=== PATIENT | male | born 1935 | race Caucasian/White ===

== ENCOUNTER 2017-10-18 16:46 | Inpatient (IN) | payer MEDICARE, MEDICAID ==
[~2017-10-18] VITALS: Ht 170.2 cm; Wt 63.5 kg
[2017-10-18] MEDS ORDERED: PANT40TA2 PO (17:27)
[2017-10-18] MEDS ORDERED: MEMA10TA PO (17:27)
[2017-10-18] MEDS ORDERED: BUPR-96 PO (17:27)
[2017-10-18] MEDS ORDERED: ENOX40DI SQ (17:27)
[2017-10-18] MEDS ORDERED: RIVA1PAT3 TD (17:27)
[2017-10-18] MEDS ORDERED: MIRT45TA PO (17:27)
[2017-10-18] MEDS ORDERED: ACET-2154 PO (17:27)
[2017-10-18] MEDS ORDERED: AMLO5TAB4 PO (17:27)
--- NOTE | 2017-10-18 17:30 | NUR ---
pt received from sakshi collins. report received from nurse. pt vitals assessed. bp elevated . other vitals stable. assessed pt on arrival. pt has severe left leg weakness.pt is also blind on left eye. other assessments within normal limits. no assessments on back pictures taken and placed in chart. pt has a blister above the incision. med recon done. md made aware. family provided information about the patient. family brought four days worth of meds such as namenda welbutrin exelon and mirtazepam. family refused to have norvasc because pt had orthostatic hypotension. family only wants meds from home. will inform md.
[2017-10-18 18:58] VITALS: BP 138/62
[2017-10-18 19:30] VITALS: BP 143/70
--- NOTE | 2017-10-18 19:30 | NUR ---
Received patient from day shift nurse. Patient currently lying in bed comfortably with no signs of pain, sob, or acute distress. patient is A/O x4 & Cuban/Serbian speaking only. BP elevated at start of shift at 143/70. Will continue to monitor BP. Per day shift RN, patient to only take meds from home brought by family. MD aware, pharmacy aware. Mena cath bag hanging low below level of bladder & off the floor. Yellow urine flowing through mena. Room checked for safety at start of shift. Bed placed in low position, locked, x2 side rails up. Call light within reach. Will continue to monitor through shift.
--- NOTE | 2017-10-18 20:50 | NUR ---
Mirtazapine 22.5mg & Namenda 10mg was given at 2034 as per order on eMAR. Family approached me stating that the son of the pt, Prashanth, had given evening meds prior to patient's admission to the hospital. I was not endorsed by family or day shift nurse that evening meds had been given. Family is stating that we gave a double dose of the Mirtazapine & Namenda. I immediately assessed the patient. patient alert, awake, no acute distress, sob, or pain noted. Vital signs were taken. BP at 128/70, HR of 88, o2 sat of 96% room air, temp of 98.0, and resp of 20. MD Dr. Pettit immediately notified of the situation. stated the patient should be fine since he did not go over FDA approved limit for both drugs. MD ordered to continue to monitor & that pt might appear sleepy/sluggish in the AM. Family aware of MD notification & order. Nursing shed workers supervisor aware. Will continue to monitor pt through shift.
[2017-10-18] MEDS ORDERED: MIRTAZAPINE 15 MG TABLET PO ONE (21:00)
[2017-10-18] MEDS ORDERED: MEMANTINE HCL 10 MG TABLET PO SCH (21:00)
[2017-10-18] MEDS ORDERED: MIRALAX 17 GM POWD.PACK PO PRN (23:00)
[2017-10-18] MEDS ORDERED: HYDROCODONE/APAP 5-325MG TABLET PO PRN (23:00)
--- NOTE | 2017-10-19 01:30 | NUR ---
Patient re assessed. vital signs WNL. BP at 124/72, o2 sat at 97%, HR at 80. No current signs of acute distress or sob. patient is alert & awake. Will continue to monitor through shift.
--- NOTE | 2017-10-19 05:50 | NUR ---
Patient remained stable through shift. No acute distress noted. Vital signs remained WNL. patient was awake for most of the night. All needs attended to. Kept clean, dry, diaper changed per soiling. Left hip incision intact, clean, dry. No s/s of infection, redness, or swelling at surgical site. Safety measures implemented. Call light within reach. Will endorse to day shift nurse.
[2017-10-19] MEDS: PANTOPRAZOLE SODIUM 40 MG TABLET.DR PO SCH (06:46)
[2017-10-19 07:11] LABS: BASOPHILS % (AUTO) 0.3 % (0.0-2.0); EOSINOPHILS # (AUTO) 0.2 K/uL (0.0-0.7); EOSINOPHILS % (AUTO) 2.6 % (0.0-7.0); HEMATOCRIT 26.7 % (36.7-47.1); LYMPHOCYTES # (AUTO) 1.6 K/uL (20.0-40.0); LYMPHOCYTES % (AUTO) 23.2 % (20.5-51.5); MEAN CORPUSCULAR HEMOGLOBIN 30.2 uug (23.8-33.4); MEAN CORPUSCULAR HGB CONC 34 g/dL (32.5-36.3); MEAN CORPUSCULAR VOLUME 89.3 fL (73.0-96.2); MONOCYTES # (AUTO) 0.5 K/uL (2.0-10.0); MONOCYTES % (AUTO) 7.7 % (0.0-11.0); NEUTROPHILS # (AUTO) 4.6 K/uL (1.8-8.9); NEUTROPHILS % (AUTO) 66.2 % (38.5-71.5); PLATELET COUNT (AUTO) 254 K/uL (152-348); RED BLOOD CELL COUNT(AUTO) 2.99 MIL/uL (4.06-5.63); WHITE BLOOD COUNT (AUTO) 6.9 K/uL (3.6-10.2)
[2017-10-19 07:56] LABS: ALANINE AMINOTRANSFERASE 84 U/L (16-63); ALKALINE PHOSPHATASE 110 U/L (50-136); ASPARTATE AMINOTRANSFERASE 97 U/L (15-37); BILIRUBIN,TOTAL 0.6 mg/dL (0.2-1.0); CARBON DIOXIDE 26 mmol/L (21-32); CHLORIDE 107 mmol/L (98-107); CREATININE 1.3 mg/dL (0.6-1.3); GLUCOSE 99 mg/dL (74-106); MAGNESIUM 2.1 mg/dL (1.8-2.4); PHOSPHOROUS 3.6 mg/dL (2.5-4.9); POTASSIUM 4.2 mmol/L (3.5-5.1); TOTAL PROTEIN, SERUM 6.2 g/dL (6.4-8.2); UREA NITROGEN, BLOOD 23 mg/dL (7-18)
[2017-10-19 08:00] VITALS: BP 136/65
[2017-10-19 08:00] LABS: IRON, SERUM 44 ug/dL (50-175)
[2017-10-19 08:23] LABS: CHOLESTEROL 151 mg/dL (<200); HDL CHOLESTEROL 29 mg/dL (40-60); TRIGLYCERIDES 126 MG/DL (30-150)
--- NOTE | 2017-10-19 08:27 | NUR ---
patient noted resting in bed, no complaints of pain, no signs of distress noted, call light in reach, bed locked and in lowest position, endorsed by manager shift nurse to hold AM medications due to family request to bring all home medications, ZAHIRA Alford, medications noted yet reported to this nurse, will continue to wait
[2017-10-19] MEDS ORDERED: RIVASTIGMINE 9.5 MG/ 24 HR 9.5 MG PATCH TD SCH (09:00)
[2017-10-19] MEDS ORDERED: MEMANTINE HCL 10 MG TABLET PO SCH (09:00)
[2017-10-19] MEDS ORDERED: buPROPion XL 150 MG TAB.SR.24H PO SCH (09:00)
[2017-10-19] MEDS: WELLBUTRIN 150 MG PO SCH (09:12)
[2017-10-19] MEDS: [UNRECOGNIZED DRUG - OTHER] TOP SCH (09:12)
[2017-10-19] MEDS: PATIENT MAY USE OWN MED- MD OK PO SCH ×3 (10:11→20:53)
[2017-10-19] MEDS: ENOXAPARIN SODIUM 40 MG/0.4 ML DISP.SYRIN SQ SCH (10:12)
--- NOTE | 2017-10-19 16:16 | NUR ---
Infante catheter removed per MD order and family request, will continue to monitor for urine output
[2017-10-19] MEDS ORDERED: MIRTAZAPINE 15 MG TABLET PO SCH (18:00)
--- NOTE | 2017-10-19 20:08 | NUR ---
resting in bed. aaox 4. speaks sami. making needs known. admitted for left hip ORIF. dressing clean dry and intact. no acute distress noted. patient has a left hip blister with mepilex intact. denies any pain nor any discomfort. voiding well in the urinal. wears diaper at night. repositioned for comfort. Patient BLIND left eye. fall precautions maintained.
[2017-10-19 20:21] VITALS: BP 120/75
[2017-10-19] MEDS: DOCUSATE SODIUM 100 MG CAPSULE PO SCH (20:53)
--- NOTE | 2017-10-20 05:56 | NUR ---
Patient slept well through shift. No acute distress noted. All needs attended to. All meds administered as ordered per MD. Safety measures implemented. Bed kept in low position x2 side rails up. diaper changed per soiling. Kept clean & dry. Left hip incision intact no s/s of infection or inflammation. Call light within reach. Will endorse to day shift nurse.
[2017-10-20] MEDS: PANTOPRAZOLE SODIUM 40 MG TABLET.DR PO SCH (06:30)
[2017-10-20 08:15] VITALS: BP 118/59
[2017-10-20] MEDS: ENOXAPARIN SODIUM 40 MG/0.4 ML DISP.SYRIN SQ SCH (08:30)
[2017-10-20] MEDS: PATIENT MAY USE OWN MED- MD OK PO SCH ×3 (08:31→21:08)
[2017-10-20] MEDS: [UNRECOGNIZED DRUG - OTHER] TOP SCH (08:31)
[2017-10-20] MEDS: WELLBUTRIN 150 MG PO SCH (08:31)
--- NOTE | 2017-10-20 11:21 | NUR ---
Patient noted resting in bed with eyes closed, no facial cues of pain, no signs of distress noted, call light in reach, bed locked and in lowest position, x 2 bed rails, bed alarm in place, all needs met at this time.
--- NOTE | 2017-10-20 13:18 | NUR ---
INTERDISCIPLINARY TEAM CONFERENCE
--- NOTE | 2017-10-20 14:00 | NUR ---
Received patient with son at bed. Not in any form of distress. Denies any pain. Call light within reach.
--- NOTE | 2017-10-20 18:00 | NUR ---
Patient resting in bed, medications and dinner tolerated.
[2017-10-20 19:30] VITALS: BP 115/69
--- NOTE | 2017-10-20 19:30 | NUR ---
Patient currently sitting on wheelchair at start of shift with family at bedside. No signs of pain, sob, or acute distress noted. patient is A/Ox3-4, Hebrew speaking. Pertinent assessment completed. Vital signs stable at start of shift. Left hip incision site is clean, dry, no s/s of redness or infection noted. Call light within reach. Will continue to monitor through shift.
[2017-10-20] MEDS: DOCUSATE SODIUM 100 MG CAPSULE PO SCH (21:00)
--- NOTE | 2017-10-21 05:57 | NUR ---
Patient slept intermittently through shift. No acute distress noted. All meds administered as ordered. Needs attended to promptly. Left hip incision kept clean, dry, intact. Left hip Dressing changed during shift. Safety measures implemented. Call light within reach. will endorse to day shift nurse.
[2017-10-21] MEDS: PANTOPRAZOLE SODIUM 40 MG TABLET.DR PO SCH (06:40)
[2017-10-21 07:00] VITALS: BP 114/59
[2017-10-21 07:31] LABS: BASOPHILS # (AUTO) 0.1 K/uL (0.0-8.0); BASOPHILS % (AUTO) 0.9 % (0.0-2.0); EOSINOPHILS # (AUTO) 0.2 K/uL (0.0-0.7); EOSINOPHILS % (AUTO) 2.6 % (0.0-7.0); HEMATOCRIT 25.4 % (36.7-47.1); HEMOGLOBIN 8.5 g/dL (12.5-16.3); LYMPHOCYTES # (AUTO) 1.8 K/uL (20.0-40.0); LYMPHOCYTES % (AUTO) 25.8 % (20.5-51.5); MEAN CORPUSCULAR HGB CONC 34 g/dL (32.5-36.3); MEAN CORPUSCULAR VOLUME 89.6 fL (73.0-96.2); MONOCYTES # (AUTO) 0.6 K/uL (2.0-10.0); MONOCYTES % (AUTO) 8.4 % (0.0-11.0); NEUTROPHILS # (AUTO) 4.3 K/uL (1.8-8.9); NEUTROPHILS % (AUTO) 62.3 % (38.5-71.5); PLATELET COUNT (AUTO) 287 K/uL (152-348); RED BLOOD CELL COUNT(AUTO) 2.83 MIL/uL (4.06-5.63); WHITE BLOOD COUNT (AUTO) 6.9 K/uL (3.6-10.2)
[2017-10-21 07:41] LABS: CARBON DIOXIDE 25 mmol/L (21-32); CHLORIDE 109 mmol/L (98-107); CREATININE 1.5 mg/dL (0.6-1.3); GLUCOSE 97 mg/dL (74-106); MAGNESIUM 2.1 mg/dL (1.8-2.4); PHOSPHOROUS 3.6 mg/dL (2.5-4.9); POTASSIUM 4.2 mmol/L (3.5-5.1); UREA NITROGEN, BLOOD 30 mg/dL (7-18)
--- NOTE | 2017-10-21 07:57 | NUR ---
Patient noted resting in bed with eyes closed, no facial cues of pain noted, no signs of distress, call light in reach, bed locked and in lowest position, x 2 bed rails, bed alarm in place
[2017-10-21] MEDS: WELLBUTRIN 150 MG PO SCH (08:29)
[2017-10-21] MEDS: [UNRECOGNIZED DRUG - OTHER] TOP SCH (08:30)
[2017-10-21] MEDS: PATIENT MAY USE OWN MED- MD OK PO SCH ×3 (08:30→20:14)
[2017-10-21] MEDS: ENOXAPARIN SODIUM 40 MG/0.4 ML DISP.SYRIN SQ SCH (08:31)
--- NOTE | 2017-10-21 19:02 | NUR ---
Orders for 1)CBC, 2) ultra sound of abdomen 3) EGD 4) stat occult blood stool test, family states they will sign consent after results from new CBC are drawn on 10/22/17. Unable to collect stool sample due to no BM..will endorse to next nurse
[2017-10-21 19:45] VITALS: BP 115/55
--- NOTE | 2017-10-21 20:15 | NUR ---
Pt refused Colace. Risks and benefits explained. Teachings provided. Still refused. As per day shift RN, family is aware and communicated about this refusal to the nurse already. Last BM 10/20/2017. Will continue to monitor.
[2017-10-21] MEDS: DOCUSATE SODIUM 100 MG CAPSULE PO SCH (20:20)
--- NOTE | 2017-10-21 22:06 | NUR ---
Pt resting comfortably in bed. AAO X3, Palestinian speaking. Able to make needs known. No acute distress noted. No c/o pain or discomfort. Safety measures maintained. Call light and personal belongings within reach. Will continue to monitor.
--- NOTE | 2017-10-22 05:30 | NUR ---
No BM. Unable to collect stool at this time. Will continue to monitor and endorse to day shift RN.
--- NOTE | 2017-10-22 05:39 | NUR ---
Pt slept comfortably at night. Meds given per MD's order. Diaper changed as needed. All needs attended to promptly. Will endorse to day shift RN. Continue to monitor.
[2017-10-22] MEDS: PANTOPRAZOLE SODIUM 40 MG TABLET.DR PO SCH ×2 (06:17→18:04)
[2017-10-22 07:49] VITALS: BP 125/56
[2017-10-22 07:54] LABS: BASOPHILS # (AUTO) 0.1 K/uL (0.0-8.0); BASOPHILS % (AUTO) 0.8 % (0.0-2.0); EOSINOPHILS # (AUTO) 0.2 K/uL (0.0-0.7); EOSINOPHILS % (AUTO) 2.9 % (0.0-7.0); HEMATOCRIT 25.2 % (36.7-47.1); HEMOGLOBIN 8.5 g/dL (12.5-16.3); LYMPHOCYTES # (AUTO) 1.9 K/uL (20.0-40.0); MEAN CORPUSCULAR HEMOGLOBIN 30.4 uug (23.8-33.4); MEAN CORPUSCULAR HGB CONC 34 g/dL (32.5-36.3); MEAN CORPUSCULAR VOLUME 90.1 fL (73.0-96.2); MONOCYTES # (AUTO) 0.6 K/uL (2.0-10.0); MONOCYTES % (AUTO) 9.1 % (0.0-11.0); NEUTROPHILS # (AUTO) 4.1 K/uL (1.8-8.9); NEUTROPHILS % (AUTO) 59.2 % (38.5-71.5); PLATELET COUNT (AUTO) 305 K/uL (152-348); WHITE BLOOD COUNT (AUTO) 6.9 K/uL (3.6-10.2)
[2017-10-22 08:11] LABS: CARBON DIOXIDE 27 mmol/L (21-32); CHLORIDE 109 mmol/L (98-107); CREATININE 1.4 mg/dL (0.6-1.3); GLUCOSE 87 mg/dL (74-106); POTASSIUM 4.4 mmol/L (3.5-5.1); UREA NITROGEN, BLOOD 25 mg/dL (7-18)
--- NOTE | 2017-10-22 08:19 | NUR ---
Received patient awake, verbally responsive, not in any form of acute distress. He denies any pain or discomfort at this time. Call light placed within reach.
[2017-10-22] MEDS: [UNRECOGNIZED DRUG - OTHER] TOP SCH (10:02)
[2017-10-22] MEDS: PATIENT MAY USE OWN MED- MD OK PO SCH ×3 (10:02→20:08)
[2017-10-22] MEDS: ENOXAPARIN SODIUM 40 MG/0.4 ML DISP.SYRIN SQ SCH (10:02)
[2017-10-22] MEDS: WELLBUTRIN 150 MG PO SCH (10:03)
[2017-10-22 13:44] LABS: *OCCULT BLOOD STOOL NEGATIVE (NEGATIVE)
--- NOTE | 2017-10-22 17:00 | NUR ---
Rimma Roy [employer] for GI Dr. Gavin, notified her stool has been collected, brown color, test result showed negative for occult blood. No noted signs of active bleeding. Per [employer] Kirill will hold EGD for now.
[2017-10-22 19:30] VITALS: BP 104/51
[2017-10-22] MEDS: DOCUSATE SODIUM 100 MG CAPSULE PO SCH (20:09)
--- NOTE | 2017-10-22 20:30 | NUR ---
Kirill QUITLINE COUNSELOR called and stated that she spoke with Dr. Gavin. Will go ahead with EGD tomorrow morning at 1100. Pt to be NPO after midnight. All meds will be on hold.
--- NOTE | 2017-10-22 22:10 | NUR ---
Pt resting in bed. AAO x3, Nigerian speaking. Able to make needs known. No acute distress noted. No c/o pain or discomfort. Safety measures maintained. Bed alarm on. Call light and personal belongings within reach. Will continue to monitor.
--- NOTE | 2017-10-22 22:28 | NUR ---
Notified son, Prashanth, about EGD tomorrow. Pt's son stated that he will be here entry analyst to talk to his father and to sign the consent form. Ultrasound of the abdomen will also be done tomorrow morning.
--- NOTE | 2017-10-23 05:49 | NUR ---
Pt slept intermittently at night. Meds given per MD's order. NPO after midnight maintained. All meds on hold. Diaper changed as needed. All needs attended to promptly. Will endorse to day shift RN. Continue to monitor.
--- NOTE | 2017-10-23 06:55 | NUR ---
Dressing changed on left hip surgery. No s/s of infection. Will continue to monitor.
[2017-10-23] MEDS: PANTOPRAZOLE SODIUM 40 MG TABLET.DR PO SCH ×2 (07:00→17:00)
[2017-10-23 07:55] LABS: BASOPHILS % (AUTO) 0.6 % (0.0-2.0); EOSINOPHILS # (AUTO) 0.1 K/uL (0.0-0.7); EOSINOPHILS % (AUTO) 2.1 % (0.0-7.0); HEMATOCRIT 26.4 % (36.7-47.1); LYMPHOCYTES # (AUTO) 1.8 K/uL (20.0-40.0); LYMPHOCYTES % (AUTO) 26.4 % (20.5-51.5); MEAN CORPUSCULAR HEMOGLOBIN 30.5 uug (23.8-33.4); MEAN CORPUSCULAR HGB CONC 34 g/dL (32.5-36.3); MEAN CORPUSCULAR VOLUME 90.1 fL (73.0-96.2); MONOCYTES # (AUTO) 0.5 K/uL (2.0-10.0); MONOCYTES % (AUTO) 7.4 % (0.0-11.0); NEUTROPHILS # (AUTO) 4.4 K/uL (1.8-8.9); NEUTROPHILS % (AUTO) 63.5 % (38.5-71.5); PLATELET COUNT (AUTO) 347 K/uL (152-348); RED BLOOD CELL COUNT(AUTO) 2.93 MIL/uL (4.06-5.63); WHITE BLOOD COUNT (AUTO) 6.9 K/uL (3.6-10.2)
[2017-10-23 08:00] VITALS: BP 138/64
--- NOTE | 2017-10-23 08:00 | NUR ---
Received patient awake, verbally responsive, not in any form of acute distress. No complain of any pain or discomfort at this time. Call light placed within reach.
--- NOTE | 2017-10-23 08:51 | NUR ---
Bruce Alford at bedside, refused to consent for EGD scheduled for today since Hgb is 9.0 and [address] OB negative. Dr. Pettit made aware with no new order at this.
--- NOTE | 2017-10-23 09:10 | NUR ---
Notified Dr. Gavin regarding family's refusal for EGD and said ok and may resume diet as previously ordered.
[2017-10-23] MEDS: [UNRECOGNIZED DRUG - OTHER] TOP SCH (09:28)
[2017-10-23] MEDS: PATIENT MAY USE OWN MED- MD OK PO SCH ×3 (09:28→21:12)
[2017-10-23] MEDS: ENOXAPARIN SODIUM 40 MG/0.4 ML DISP.SYRIN SQ SCH (09:28)
[2017-10-23] MEDS: WELLBUTRIN 150 MG PO SCH (09:29)
--- NOTE | 2017-10-23 09:30 | NUR ---
Son made aware that patient is also scheduled for abdominal ultrasound and son refused to have it done.
--- NOTE | 2017-10-23 10:00 | NUR ---
Informed surgery care of [facility] that EGD refused by family.
[2017-10-23] MEDS: ACETAMINOPHEN 325 MG TABLET PO PRN (13:17)
[2017-10-23 18:58] LABS: BILIRUBIN,DIRECT 0.1 mg/dL (0.0-0.2); BILIRUBIN,TOTAL 0.4 mg/dL (0.2-1.0); TOTAL PROTEIN, SERUM 6.6 g/dL (6.4-8.2)
--- NOTE | 2017-10-23 20:02 | NUR ---
Pt resting in bed. Family at bedside and brought food for the pt. Nepali speaking. No acute distress noted. No c/o pain or discomfort. Safety measures maintained. Call light and personal belongings within reach. Will continue to monitor.
[2017-10-23 20:10] VITALS: BP 125/56
[2017-10-23] MEDS: DOCUSATE SODIUM 100 MG CAPSULE PO SCH (21:00)
--- NOTE | 2017-10-24 05:46 | NUR ---
Pt slept comfortably at night. Meds given per MD's order. Changed diaper as needed. No signs of infection on surgical site. Kept clean and dry. All needs attended to promptly. Will endorse to day shift RN. Continue to monitor.
[2017-10-24] MEDS: PANTOPRAZOLE SODIUM 40 MG TABLET.DR PO SCH (06:04)
[2017-10-24 07:06] VITALS: BP 113/75
[2017-10-24] MEDS: [UNRECOGNIZED DRUG - OTHER] TOP SCH (08:30)
[2017-10-24] MEDS: WELLBUTRIN 150 MG PO SCH (08:30)
[2017-10-24] MEDS: PATIENT MAY USE OWN MED- MD OK PO SCH ×3 (08:30→20:34)
[2017-10-24] MEDS: ENOXAPARIN SODIUM 40 MG/0.4 ML DISP.SYRIN SQ SCH (08:32)
--- NOTE | 2017-10-24 09:31 | NUR ---
Patient noted resting in bed with eyes closed, no facial cues of pain noted, no signs of distress, call light in reach, bed locked and in lowest position, x [address], bed alarm in place
--- NOTE | 2017-10-24 19:20 | NUR ---
Patient received in bed. Alert and verbally responsive. Mexican speaking. Family at bedside. No c/o pain and discomfort. No acute distress. No SOB. Kept clean and dry. All needs attended to promptly. Call light within reach. Will continue to monitor.
[2017-10-24 20:17] VITALS: BP 110/64
[2017-10-24] MEDS: DOCUSATE SODIUM 100 MG CAPSULE PO PRN (20:34)
--- NOTE | 2017-10-25 06:01 | NUR ---
Patient slept comfortably throughout the night. No c/o pain and discomfort. No acute distress. No SOB. Kept clean and dry. All needs attended to promptly. Call light within reach. Will continue to monitor.
[2017-10-25] MEDS: PANTOPRAZOLE SODIUM 40 MG TABLET.DR PO SCH (06:18)
[2017-10-25 07:11] VITALS: BP 117/60
[2017-10-25 07:19] LABS: BASOPHILS % (AUTO) 0.7 % (0.0-2.0); EOSINOPHILS # (AUTO) 0.2 K/uL (0.0-0.7); EOSINOPHILS % (AUTO) 2.5 % (0.0-7.0); HEMATOCRIT 27.4 % (36.7-47.1); HEMOGLOBIN 9.2 g/dL (12.5-16.3); LYMPHOCYTES # (AUTO) 1.9 K/uL (20.0-40.0); LYMPHOCYTES % (AUTO) 29.9 % (20.5-51.5); MEAN CORPUSCULAR HEMOGLOBIN 30.2 uug (23.8-33.4); MEAN CORPUSCULAR HGB CONC 34 g/dL (32.5-36.3); MEAN CORPUSCULAR VOLUME 90.2 fL (73.0-96.2); MONOCYTES # (AUTO) 0.6 K/uL (2.0-10.0); MONOCYTES % (AUTO) 8.9 % (0.0-11.0); NEUTROPHILS # (AUTO) 3.7 K/uL (1.8-8.9); PLATELET COUNT (AUTO) 383 K/uL (152-348); RED BLOOD CELL COUNT(AUTO) 3.04 MIL/uL (4.06-5.63); WHITE BLOOD COUNT (AUTO) 6.4 K/uL (3.6-10.2)
--- NOTE | 2017-10-25 08:46 | NUR ---
Received patient awake alert x4. On room air, not in apparent distress. Up with physical therapy tolerating therapy well.
[2017-10-25] MEDS: WELLBUTRIN 150 MG PO SCH (10:06)
[2017-10-25] MEDS: PATIENT MAY USE OWN MED- MD OK PO SCH ×3 (10:06→21:01)
[2017-10-25] MEDS: [UNRECOGNIZED DRUG - OTHER] TOP SCH (10:06)
[2017-10-25] MEDS: ENOXAPARIN SODIUM 40 MG/0.4 ML DISP.SYRIN SQ SCH (10:09)
--- NOTE | 2017-10-25 17:00 | NUR ---
Resting in bed, Denies any pain. Dressing changed no S/S of infection over surgical site noted no drainage, redness over sides noted. Paper tape and Mepilex used.
--- NOTE | 2017-10-25 17:01 | NUR ---
Documented wound, took pictures. Cleansed wound, NS and pat dry applied dressing. Redness and excoriation from dressing and around adhesive noted. Changed dressing with paper tape and Mepilex.
--- NOTE | 2017-10-25 20:00 | NUR ---
Received patient sitting up in bed. Alert and verbally responsive. Gibraltarian speaking. Family at bedside. Able to make needs known. Denies any pain and discomfort. No acute distress. No SOB. Kept clean and dry. All needs attended to promptly. Call light within reach. Will continue to monitor.
[2017-10-25 20:28] VITALS: BP 121/68
[2017-10-25] MEDS: DOCUSATE SODIUM 100 MG CAPSULE PO PRN (21:06)
[2017-10-26] MEDS: PANTOPRAZOLE SODIUM 40 MG TABLET.DR PO SCH (06:32)
[2017-10-26 07:30] VITALS: BP 108/57
[2017-10-26] MEDS: WELLBUTRIN 150 MG PO SCH (09:07)
[2017-10-26] MEDS: [UNRECOGNIZED DRUG - OTHER] TOP SCH (09:07)
[2017-10-26] MEDS: PATIENT MAY USE OWN MED- MD OK PO SCH ×3 (09:07→20:38)
[2017-10-26] MEDS: ENOXAPARIN SODIUM 40 MG/0.4 ML DISP.SYRIN SQ SCH (09:09)
--- NOTE | 2017-10-26 09:10 | NUR ---
Received patient awake, verbally responsive, not in any form of acute distress. Watching TV. Called son to translate for medication administration and patient agreed in taking. Patient has no complain of any pain or discomfort at this time. Attended to his needs. Call light placed within reach and reminded to use for assistance.
--- NOTE | 2017-10-26 15:04 | NUR ---
Received an order from Dr. Magnus Edward for CBC in AM. Order carried out. Addendum: 10/26/17 at 1945 by RASHAD LUNA RN Notified Dr. Edward regarding family's concern of skin injury from tape of surgical dressing and previous blister site with noted discoloration. Dr. Edward stated that he will look at it tonight. Endorsed accordingly to police shift commander RN.
[2017-10-26] MEDS: DOCUSATE SODIUM 100 MG CAPSULE PO PRN (20:38)
[2017-10-26 20:45] VITALS: BP 120/69
--- NOTE | 2017-10-26 21:59 | NUR ---
received patient in chair at beginning of the shift. aaox4. speaks italian. son in with patient. left hip dressing changed with son at bedside. son concerned regarding hip dressing with mepilex with a paper tape on it, says its not supposed to be with a tape because it tears off his skin. noted a skin tear on the left hip with 3 pea size with redness noted, but no bleeding noted. Will relay message to the nurse incoming shift in am not to put tape on it. Dr Edward was notified earlier by daysarft nurse regarding about the skin tear and the blister that burst with a black discoloration but Dr Edward did not come. Will monitor patient. Due meds given to patient with son at bedside.
--- NOTE | 2017-10-27 05:07 | NUR ---
slept well no distress noted. fall precautions maintained. kept comfortable. will monitor patient. needs attended.
[2017-10-27] MEDS: PANTOPRAZOLE SODIUM 40 MG TABLET.DR PO SCH (06:28)
--- NOTE | 2017-10-27 08:09 | NUR ---
Patient noted resting in bed with eyes closed, no facial cues of pain at this time, no signs of distress, call light in reach, bed locked and in lowest position, x2 bed rails, bed alarm in place, all needs met at this time.
[2017-10-27] MEDS: ENOXAPARIN SODIUM 40 MG/0.4 ML DISP.SYRIN SQ SCH (08:43)
[2017-10-27] MEDS: PATIENT MAY USE OWN MED- MD OK PO SCH ×3 (08:44→20:50)
[2017-10-27] MEDS: [UNRECOGNIZED DRUG - OTHER] TOP SCH (08:44)
[2017-10-27] MEDS: WELLBUTRIN 150 MG PO SCH (08:44)
[2017-10-27 09:40] LABS: BASOPHILS # (AUTO) 0.1 K/uL (0.0-8.0); BASOPHILS % (AUTO) 0.9 % (0.0-2.0); EOSINOPHILS # (AUTO) 0.2 K/uL (0.0-0.7); HEMATOCRIT 30.2 % (36.7-47.1); HEMOGLOBIN 10.1 g/dL (12.5-16.3); LYMPHOCYTES # (AUTO) 2.1 K/uL (20.0-40.0); LYMPHOCYTES % (AUTO) 27.8 % (20.5-51.5); MEAN CORPUSCULAR HEMOGLOBIN 30.3 uug (23.8-33.4); MEAN CORPUSCULAR HGB CONC 33 g/dL (32.5-36.3); MEAN CORPUSCULAR VOLUME 91.1 fL (73.0-96.2); MONOCYTES # (AUTO) 0.4 K/uL (2.0-10.0); MONOCYTES % (AUTO) 4.8 % (0.0-11.0); NEUTROPHILS # (AUTO) 4.9 K/uL (1.8-8.9); NEUTROPHILS % (AUTO) 64.5 % (38.5-71.5); PLATELET COUNT (AUTO) 460 K/uL (152-348); RED BLOOD CELL COUNT(AUTO) 3.32 MIL/uL (4.06-5.63); WHITE BLOOD COUNT (AUTO) 7.6 K/uL (3.6-10.2)
--- NOTE | 2017-10-27 14:53 | NUR ---
INTERDISCIPLINARY TEAM CONFERENCE
--- NOTE | 2017-10-27 19:40 | NUR ---
Received patient laying in bed, awake and alert. Lithuanian speaking, able to make needs known. Vital signs taken and recorded. No current signs of pain, sob, or acute distress noted. Pertinent assessment done. Safety measurements provided. Call light within reach. will continue to monitor through shift.
[2017-10-27 20:46] VITALS: BP 123/57
[2017-10-28] MEDS: PANTOPRAZOLE SODIUM 40 MG TABLET.DR PO SCH (06:55)
--- NOTE | 2017-10-28 08:00 | NUR ---
Received pt. in bed resting, alert, awake, oriented x 2, confused @ times, in room air, breathing regular, symmetrical and unlabored. Pt. facial expression calm and relaxed, no s/s of agitation, no s/s of moaning or crying. Pt. No IV access. Pt. with diaper on, assisted with activities of daily living and needs @ the bedside. Pt. speaks Latvian only. Pt. with mepilex @ the sacral area to protect skin.
[2017-10-28 08:46] VITALS: BP 122/59
[2017-10-28] MEDS: WELLBUTRIN 150 MG PO SCH ×2 (09:24→14:34)
[2017-10-28] MEDS: [UNRECOGNIZED DRUG - OTHER] TOP SCH ×2 (09:24→14:35)
[2017-10-28] MEDS: ENOXAPARIN SODIUM 40 MG/0.4 ML DISP.SYRIN SQ SCH (09:29)
[2017-10-28] MEDS: PATIENT MAY USE OWN MED- MD OK PO SCH ×5 (09:31→21:03)
--- NOTE | 2017-10-28 12:00 | NUR ---
Pt. resting in bed, provided assistance with adl's, maintained pt. safety, keep warm, clean, dry and comfortable in bed. Pt. soon to be placed in the wheelchair around 0200 pm when pt. is ready. Pt. ate his lunch and assisted and supervised pt. and pt. able to eat his meal tray independently. HOB up @ this time. Provided pt. a quiet environment while eating lunch.
--- NOTE | 2017-10-28 17:30 | NUR ---
Pt.'s son bring their own physical therapist for the patient. The therapist doing exercise, ROM-active and passive ROM to the pt. According to the son, the therapist is his brother. Mateusz - acting Charge Nurse of the Rehab- [facility] today aware and notified/called Green [employer] Inspector. Green T[employer] Inspector came, checked and assessed the situation right away to the family. Green T[employer] Inspector had talked and asked the Son of the pt. name Prashanth.
--- NOTE | 2017-10-28 18:09 | NUR ---
pt heard to have been screaming. went to the pt's room. family states that pt has his own physical therapist. physical therapist doing bedside exercises. notified supervisor border department of the incident. nursing supervisor border department said that it is not allowed. family insisted on therapy and that the pt is safe. notified. insisted on telling the family to stop the session because it cause further injury to the surgery site. no orders to have family to bring own pt's therapist to do therapy within the facility. family continues to insist. will do an incident report.
--- NOTE | 2017-10-28 20:00 | NUR ---
NSG: Received patient laying in bed. Alert and oriented verbally responsive. patient Andorran speaking. Able to make needs known. Denies any pain and discomfort. No acute distress. No SOB. Kept clean and dry. All needs attended to promptly. Call light within reach. Will continue to monitoring for safety.
[2017-10-28 20:16] VITALS: BP 116/64
--- NOTE | 2017-10-29 | NUR ---
NSG: PATIENT SLEEPING EYE CLOSE. NO S/S OF PAIN OR DISCOMFORT NOTED @ THIS TIME. CONTINUE MONITORING FOR SAFETY.
[2017-10-29] MEDS: PANTOPRAZOLE SODIUM 40 MG TABLET.DR PO SCH (06:25)
--- NOTE | 2017-10-29 06:41 | NUR ---
nsg; Patient slept comfortably throughout the night. No c/o pain and discomfort. No acute distress. No SOB. compliant with medications and care. Kept clean and dry. All needs attended to promptly. Call light within reach. Will continue to monitor.
[2017-10-29 07:30] VITALS: BP 110/62
--- NOTE | 2017-10-29 09:00 | NUR ---
Daily Nursing Note: 729 Received report from night nurse regarding patients overall condition and treatment plan. Seen patient upon doing rounds, asleep at this time, breathing even and non-labored, not in acute distress, vital signs checked and recorded. Kept clean dry and comfortable. 914 Called son, told him to translate for his father regarding care and medication administration as well as OT exercises. Patient and son spoke with each other, after their talk on the phone, the patient took his medications and went with OT for therapy, will continue to monitor.
[2017-10-29] MEDS: WELLBUTRIN 150 MG PO SCH (09:43)
[2017-10-29] MEDS: PATIENT MAY USE OWN MED- MD OK PO SCH ×3 (09:44→21:20)
[2017-10-29] MEDS: [UNRECOGNIZED DRUG - OTHER] TOP SCH (09:45)
[2017-10-29] MEDS: ACETAMINOPHEN 325 MG TABLET PO PRN (09:45)
[2017-10-29] MEDS: ENOXAPARIN SODIUM 40 MG/0.4 ML DISP.SYRIN SQ SCH (09:47)
--- NOTE | 2017-10-29 17:28 | NUR ---
Daily Nursing Note: 1300 Son Prashanth is here and was attended to his questions and concerns regarding his father, no further questions noted, he was asking about the discharge plan. fleet dispatch manager made aware via text, son was then informed that he will need to talk to director of casework services tomorrow, per director of casework services. 1430 At this time, patient just had a shower accompanied by Son and FIELD SUPERVISOR SE[employer]ODUCTION, after the shower, performed pertinent assessment, surgical wound is intact and dry, dressing was changed as well. 1600 Son left, patient is in his room watching TV, provided with safety, visual checks done. Needs attended promptly 1730 Patient is stable, in his chair, per son's request, have him sit in the chair because the daughter, son's sister is coming. Call light is placed in reach.
--- NOTE | 2017-10-29 19:30 | NUR ---
Patient currently sitting in wheelchair by the bedside at start of shift. No acute distress noted. Patient is Greenlandic speaking only. Pertinent assessment completed. Vital signs within range. Left hip dressing is clean, dry, intact. No s/s of redness or inflammation noted at surgical site. Call light placed within reach. Will continue to monitor through shift.
[2017-10-29 20:00] VITALS: BP 103/60
--- NOTE | 2017-10-30 06:06 | NUR ---
Patient shouted periodically through the night. Slept intermittently. No acute distress noted. Left hip dressing is intact & kept clean, dry. All needs attended to promptly. Diaper changed per soiling. All medications administered as per MD order. Safety measures implemented. Will endorse to day shift RN.
[2017-10-30] MEDS: PANTOPRAZOLE SODIUM 40 MG TABLET.DR PO SCH (06:23)
[2017-10-30 07:53] VITALS: BP 120/64
--- NOTE | 2017-10-30 08:04 | NUR ---
patient noted sitting up in bed, no facial cues of pain noted, no signs of distress noted, call light in reach, bed locked and in lowest position, bed alarm in place, x 2 bed rails, all needs met at this time
[2017-10-30] MEDS: PATIENT MAY USE OWN MED- MD OK PO SCH (09:00)
[2017-10-30] MEDS: [UNRECOGNIZED DRUG - OTHER] TOP SCH (09:00)
[2017-10-30] MEDS: WELLBUTRIN 150 MG PO SCH (09:00)
[2017-10-30] MEDS: ENOXAPARIN SODIUM 40 MG/0.4 ML DISP.SYRIN SQ SCH (09:00)
--- NOTE | 2017-10-30 13:50 | NUR ---
PATIENT LEFT FACILITY VIA PRIVATE CAR VIA WHEELCHAIR WITH SON RENUKA, NO COMPLAINTS OF PAIN, NO SIGNS OF DISTRESS NOTED, 120/64, 99% ON ROOM AIR, 18 RESPIRATIONS, 66 PULSE, 98.1 ORAL TEMPERATURE, DISCHARGED HOME WITH [facility] , EXIT CARE PROVIDED, DISCHARGE INSTRUCTIONS PROVIDED, FOLLOW UP APPOINTMENT FOR DR. PENG 11/10/2017 AT 0915 AM
== END 2017-10-30 15:00 | disposition home health service (06) | DRG 559 ==
PROVIDERS: ADMIT Physical Medicine & Rehabilitation Pain Medicine; ATTEND Physical Medicine & Rehabilitation Pain Medicine
DX: M80.052D Age-related osteoporosis with current pathological fracture, left femur, subsequent encounter for fracture with routine healing (principal); E43 Unspecified severe protein-calorie malnutrition; N17.0 Acute kidney failure with tubular necrosis; D68.59 Other primary thrombophilia; F03.90 Unspecified dementia, unspecified severity, without behavioral disturbance, psychotic disturbance, mood disturbance, and anxiety; F32.3 Major depressive disorder, single episode, severe with psychotic features; M85.88 Other specified disorders of bone density and structure, other site; Z91.81 History of falling; D50.9 Iron deficiency anemia, unspecified; I12.9 Hypertensive chronic kidney disease with stage 1 through stage 4 chronic kidney disease, or unspecified chronic kidney disease; N18.9 Chronic kidney disease, unspecified; I70.0 Atherosclerosis of aorta; G90.8 Other disorders of autonomic nervous system; R26.9 Unspecified abnormalities of gait and mobility; I95.1 Orthostatic hypotension; Z88.8 Allergy status to other drugs, medicaments and biological substances
CPT/HCPCS: 36415; 76705; 82306; 83550; 83735; 84100; 84443; 85025; 92526; 92610; 97110; 97112; 97116; 97165; 97530; 97535; A4663; J1650